=== PATIENT | female | born 1950 | race Caucasian/White ===

== ENCOUNTER 2017-05-18 13:51 | Emergency (ER) | payer MEDICARE, OTHER ==
--- NOTE | 2017-05-18 14:22 | EDM.PDOC ---
ED HPI GENERAL MEDICAL PROBLEM - General Chief Complaint: Abdominal Pain Stated Complaint: [id number] ABDOM PAIN LITTLE BACK PAIN Time Seen by Provider: 05/18/17 14:22 Source of Information: Reports: Patient, RN, RN Notes Reviewed History Limitations: Reports: No Limitations - History of Present Illness INITIAL COMMENTS - FREE TEXT/NARRATIVE: Arrives from home by POV with c/o several days of upper abdominal pain radiating to the back with nausea, fevers, and chills. Denies vomiting. Admits to constipation. Onset: Gradual Duration: Constant, Getting Worse Location: Reports: Abdomen Quality: Reports: Ache, Pressure Severity: Moderate Improves with: Reports: None Worsens with: Reports: Eating Associated Symptoms: Reports: No Other Symptoms Bilateral Upper Abdomen Pain Score (Numeric/FACES): 6 - Related Data Allergies Allergy/AdvReac Type Severity Reaction Status Date / Time No Known Allergies Allergy Verified 02/25/14 07:45 Home Meds: Home Meds Aspirin [Adult Low Dose Aspirin EC] 81 mg PO DAILY 02/25/14 [History] Enalapril [Vasotec] 20 mg PO DAILY 02/25/14 [History] Enalapril [Vasotec] 5 mg PO BEDTIME 05/18/17 [History] Metoprolol Succinate [Toprol XL 100mg] 100 mg PO DAILY 05/18/17 [History] Past Medical History Cardiovascular History: Reports: Hypertension Respiratory History: Reports: Other (See Below) (pulmonary nodules) Genitourinary History: Reports: Chronic Renal Insuffiency Endocrine/Metabolic History: Reports: Obesity/BMI 30+ - Past Surgical History Female Surgical History: Reports: Hysterectomy Social & Family History - Family History Family Medical History: Noncontributory - Tobacco Use Smoking Status *Q: Never Smoker - Alcohol Use Alcohol Use History: No Alcohol Use Frequency: Rarely - Recreational Drug Use Recreational Drug Use: No - Living Situation & Occupation Living situation: Reports: , with Spouse Occupation: Retired ED ROS GENERAL - Review of Systems Review Of Systems: ROS reveals no pertinent complaints other than HPI. ED EXAM, GENERAL - Physical Exam Exam: See Below Exam Limited By: No Limitations General Appearance: Alert, WD/WN, Obese, Other (uncomfortable and ill, but non- toxic appearing) Eye Exam: Bilateral Eye: Normal Inspection (no scleral icterus) Nose: Normal Inspection Throat/Mouth: Normal Lips, Normal Teeth, Normal Gums, Normal Oropharynx, Normal Voice, No Airway Compromise, Other (dry oral membranes) Head: Atraumatic, Normocephalic Neck: Normal Inspection, Supple, Non-Tender, Full Range of Motion. No: Lymphadenopathy (L), Lymphadenopathy (R) Respiratory/Chest: No Respiratory Distress, No Accessory Muscle Use, Chest Non- Tender, Decreased Breath Sounds, Crackles. No: Rales, Rhonchi, Wheezing Cardiovascular: Regular Rate, Rhythm, No Edema, Extra Beats GI/Abdominal: Soft, No Distention, No Abnormal Bruit, Tender (RUQ and epigastric abdomen), Abnormal Bowel Sounds (hypoactive). No: Guarding, Rigid, Rebound (Female) Exam: Deferred Rectal (Female) Exam: Deferred Back Exam: Normal Inspection. No: CVA Tenderness (L), CVA Tenderness (R), Paraspinal Tenderness, Vertebral Tenderness Extremities: Normal Inspection, Normal Range of Motion, Non-Tender Neurological: Alert, Oriented, CN II-XII Intact, Normal Cognition, Normal Gait, No Motor/Sensory Deficits Psychiatric: Normal Affect, Normal Mood Skin Exam: Warm, Dry, Intact, Normal Color, No Rash Course - Vital Signs Last Recorded V/S: Last Vital Signs Temp 37.7 C 05/18/17 16:01 Pulse 78 05/18/17 14:33 Resp 16 05/18/17 16:01 BP 137/63 05/18/17 16:01 Pulse Ox 95 05/18/17 16:01 - Orders/Labs/Meds Orders: Active Orders 24 hr Category Date Time Status Peripheral IV Care [RC] . DIRECTED Care 05/18/17 14:49 Active CULTURE BLOOD [BC] Stat Lab 05/18/17 15:00 Received CULTURE BLOOD [BC] Stat Lab 05/18/17 15:20 Received CULTURE STREP A CONFIRMATION [] Stat Lab 05/18/17 15:29 Results STREP SCRN A RAPID W CULT CONF [] Stat Lab 05/18/17 15:29 Results Sodium Chloride 0.9% [Saline Flush] Med 05/18/17 14:49 Active 10 ml FLUSH ASDIRECTED PRN Blood Culture x2 Reflex Set [OM.PC] Stat Oth 05/18/17 14:48 Ordered Peripheral IV Insertion Adult [OM.PC] Stat Oth 05/18/17 14:48 Ordered Medication Orders Sodium Chloride (Saline Flush) 10 ml FLUSH ASDIRECTED PRN PRN Reason: Keep Vein Open Last Admin: 05/18/17 15:58 Dose: 10 ml Labs: Laboratory Tests 05/18/17 05/18/17 05/18/17 Range/Units 15:00 15:00 15:00 WBC 14.5 H (5.0-10.0) 10^3/uL RBC 4.21 (4.2-5.4) 10^6/uL Hgb 12.5 (12.0-16.0) g/dL Hct 37.8 (37.0-47.0) % MCV 89.8 (80-100) fL MCH 29.7 (27.0-34.0) pg MCHC 33.1 (33.0-35.0) g/dL Plt Count 155 (150-450) 10^3/uL Neut % (Auto) 88.4 H (42.2-75.2) % Lymph % (Auto) 2.8 L (20.5-50.1) % [place] % (Auto) 8.6 H (2-8) % Eos % (Auto) 0.1 L (1.0-3.0) % Baso % (Auto) 0.1 (0.0-1.0) % Sodium 133 L (135-145) mmol/L Potassium 4.1 (3.6-5.0) mmol/L Chloride 99 L (101-111) mmol/L Carbon Dioxide 24.0 (21.0-31.0) mmol/L Anion Gap 14.1 BUN 30 H (7-18) mg/dL Creatinine 1.7 H (0.6-1.3) mg/dL Est Cr Clr Drug Dosing 30.47 mL/min Estimated GFR (MDRD) 30 BUN/Creatinine Ratio 17.64 Glucose 112 H (74-105) mg/dL Lactic Acid 0.8 (0.5-2.2) mmol/L Calcium 9.1 (8.4-10.2) mg/dl Total Bilirubin 0.9 (0.2-1.0) mg/dL AST 22 (10-42) IU/L ALT 19 (10-60) IU/L Alkaline Phosphatase 61 (42-121) IU/L Lactate Dehydrogenase 153 (91-180) IU/L Total Protein 7.6 (6.7-8.2) g/dl Albumin 4.0 (3.2-5.5) g/dl Globulin 3.6 Albumin/Globulin Ratio 1.11 Amylase 54 (28-100) U/L Lipase 23 (22-51) U/L Urine Color (YELLOW) Urine Appearance (CLEAR) Urine pH (5.0-9.0) Ur Specific [place] (1.005-1.030) Urine Protein (NEGATIVE) Urine Glucose (UA) (NEGATIVE) Urine Ketones (NEGATIVE) Urine Occult Blood (NEGATIVE) Urine Nitrite (NEGATIVE) Urine Bilirubin (NEGATIVE) Urine Urobilinogen (0.2-1.0) mg/dL Ur Leukocyte Esterase (NEGATIVE) Urine RBC /HPF Urine WBC (0-5/HPF) /HPF Ur Epithelial Cells /HPF Amorphous Sediment (0/HPF) /HPF Urine Bacteria (0-FEW/HPF) /HPF Urine Mucus /LPF 05/18/17 Range/Units 15:30 WBC (5.0-10.0) 10^3/uL RBC (4.2-5.4) 10^6/uL Hgb (12.0-16.0) g/dL Hct (37.0-47.0) % MCV (80-100) fL MCH (27.0-34.0) pg MCHC (33.0-35.0) g/dL Plt Count (150-450) 10^3/uL Neut % (Auto) (42.2-75.2) % Lymph % (Auto) (20.5-50.1) % [place] % (Auto) (2-8) % Eos % (Auto) (1.0-3.0) % Baso % (Auto) (0.0-1.0) % Sodium (135-145) mmol/L Potassium (3.6-5.0) mmol/L Chloride (101-111) mmol/L Carbon Dioxide (21.0-31.0) mmol/L Anion Gap BUN (7-18) mg/dL Creatinine (0.6-1.3) mg/dL Est Cr Clr Drug Dosing mL/min Estimated GFR (MDRD) BUN/Creatinine Ratio Glucose (74-105) mg/dL Lactic Acid (0.5-2.2) mmol/L Calcium (8.4-10.2) mg/dl Total Bilirubin (0.2-1.0) mg/dL AST (10-42) IU/L ALT (10-60) IU/L Alkaline Phosphatase (42-121) IU/L Lactate Dehydrogenase (91-180) IU/L Total Protein (6.7-8.2) g/dl Albumin (3.2-5.5) g/dl Globulin Albumin/Globulin Ratio Amylase (28-100) U/L Lipase (22-51) U/L Urine Color Yellow (YELLOW) Urine Appearance Slightly cloudy (CLEAR) Urine pH 5.5 (5.0-9.0) Ur Specific [place] 1.025 (1.005-1.030) Urine Protein 100 H (NEGATIVE) Urine Glucose (UA) Negative (NEGATIVE) Urine Ketones 15 H (NEGATIVE) Urine Occult Blood Negative (NEGATIVE) Urine Nitrite Negative (NEGATIVE) Urine Bilirubin Small H (NEGATIVE) Urine Urobilinogen 0.2 (0.2-1.0) mg/dL Ur Leukocyte Esterase Trace H (NEGATIVE) Urine RBC 0-5 /HPF Urine WBC 40-50 H (0-5/HPF) /HPF Ur Epithelial Cells Few /HPF Amorphous Sediment Few (0/HPF) /HPF Urine Bacteria Few (0-FEW/HPF) /HPF Urine Mucus Rare /LPF Rapid strep: negative Meds: Medications Generic Name Dose Route Start Last Admin Trade Name Sherlyn PRN Reason Stop Dose Admin Sodium Chloride 10 ml 05/18/17 14:49 05/18/17 15:58 Saline Flush FLUSH 10 ml ASDIRECTED PRN Administration Keep Vein Open Discontinued Medications Generic Name Dose Route Start Last Admin Trade Name Sherlyn PRN Reason Stop Dose Admin Acetaminophen 650 mg 05/18/17 16:19 05/18/17 16:21 Tylenol PO 05/18/17 16:20 650 mg NOW ONE Administration Sodium Chloride 1,000 mls @ 999 mls/hr 05/18/17 14:50 05/18/17 15:57 Normal Saline IV 05/18/17 15:50 999 mls/hr .BOLUS ONE Administration Piperacillin Sod/Tazobactam 100 mls @ 200 mls/hr 05/18/17 15:59 05/18/17 16: 15 Sod 3.375 gm/ Sodium Chloride IV 05/18/17 16:28 200 mls/hr ONETIME ONE Administration Ondansetron HCl 4 mg 05/18/17 14:50 05/18/17 15:58 Zofran IV 05/18/17 14:51 4 mg ONETIME ONE Administration - Radiology Interpretation Free Text/Narrative:: CT abd/pelvis: Disease gallbladder, i.e., solitary large dependent intraluminal gallstone impacted at the origin of the cystic duct, gallbladder distention, and wall thickening with pericystic fluid typical of acute inflammation. Unenhanced liver, stomach, spleen, pancreas and adrenal glands unremarkable. Specifically no current signs of abnormal dilatation intra or extrahepatic biliary ducts. Major pancreatic ducts unremarkable. No peripancratic "dirty fat ". CONCLUSION: Disease gallbladder. Sigmoid diverticulosis. See rad report. Departure - Departure Time of Disposition: 16:52 Disposition: DC/Tfer to [facility] 02 Condition: Serious Clinical Impression: Cholecystitis, Gallstone (impacted), Dehydration Chronic kidney disease Qualifiers: Chronic kidney disease stage: unspecified stage Qualified Code(s): N18.9 - Chronic kidney disease, unspecified - Discharge Information Referrals: PCP,Unobtain [Primary Care Provider] - Forms: ED Department Discharge, Interfacility Transfer EMTALA - My Orders Last 24 Hours: My Active Orders 05/18/17 14:48 Blood Culture x2 Reflex Set [OM.PC] Stat Peripheral IV Insertion Adult [OM.PC] Stat 05/18/17 14:49 Peripheral IV Care [RC] . DIRECTED Sodium Chloride 0.9% [Saline Flush] 10 ml FLUSH ASDIRECTED PRN 05/18/17 15:00 CULTURE BLOOD [BC] Stat 05/18/17 15:20 CULTURE BLOOD [BC] Stat 05/18/17 15:29 CULTURE STREP A CONFIRMATION [RM] Stat STREP SCRN A RAPID W CULT CONF [RM] Stat - Assessment/Plan Last 24 Hours: My Active Orders 05/18/17 14:48 Blood Culture x2 Reflex Set [OM.PC] Stat Peripheral IV Insertion Adult [OM.PC] Stat 05/18/17 14:49 Peripheral IV Care [RC] . DIRECTED Sodium Chloride 0.9% [Saline Flush] 10 ml FLUSH ASDIRECTED PRN 05/18/17 15:00 CULTURE BLOOD [BC] Stat 05/18/17 15:20 CULTURE BLOOD [BC] Stat 05/18/17 15:29 CULTURE STREP A CONFIRMATION [RM] Stat STREP SCRN A RAPID W CULT CONF [RM] Stat
[2017-05-18] MEDS ORDERED: Sodium Chloride 0.9% 10 ML Syringe FLUSH PRN (14:49)
[2017-05-18] MEDS ORDERED: Sodium Chloride 0.9% 1,000 ML IV ONE (14:50)
[2017-05-18] MEDS ORDERED: Ondansetron 4 MG/2 ML SDV IV ONE (14:50)
--- NOTE | 2017-05-18 15:58 | CT ---
Clinical history: 67 year-old 240 pound febrile female with upper abdominal pain that radiates to the back. Elevated white blood cell count (WBC 14,500). Scan technique: Volume acquisition of data emergency unenhanced CT scan of the abdomen and pelvis obt ained with the patient lying supine on the Siemens multi slice CT scanner [place], [place]. All data archived in the PACS system for storage, reformatting axial/sagittal/c oronal planes and study. Interpretation: Abnormal. 1. Diseased gallbladder i.e. solitary large dependent intraluminal gallstone impacted at the origin o f the cystic duct, gallbladder distention, and wall thickening with pericystic fluid typical of acute inflammation. 2. Unenhanced liver, stomach, spleen, pancreas and adrenal glands unremarkable. Specifically no curre nt signs of abnormal dilatation intra or extrahepatic biliary ducts. Major pancreatic ducts unremarka ble. No peripancreatic "dirty" fat. 3. Normal caliber aortoiliac vessels. Unenhanced kidneys unremarkable. No sign of nephrolithiasis or obstructive uropathy. 4. Sigmoid diverticulosis without associated signs of inflammation. 5. Dense tablet within the cecum. Normal appendix RLQ. No sign of mechanical bowel obstruction, ascit es or free air. 6. Normal heart. Platelike atelectasis but lung bases otherwise clear. Multilevel lower lumbar disc d isease and arthritis spine. CONCLUSION: Diseased gallbladder. Sigmoid diverticulosis.
[2017-05-18] MEDS ORDERED: Piperacillin/Tazobactam 3.375 GM in Sodium Chloride 0.9% 100 ML IV ONE (15:59)
[2017-05-18] MEDS ORDERED: Acetaminophen 325 MG Tab PO ONE (16:19)
== END 2017-05-18 17:38 ==
LOC: DL.ED 13:51
DX: K80.10 Calculus of gallbladder with chronic cholecystitis without obstruction (principal); I12.9 Hypertensive chronic kidney disease with stage 1 through stage 4 chronic kidney disease, or unspecified chronic kidney disease; N18.9 Chronic kidney disease, unspecified; Z79.82 Long term (current) use of aspirin; Z79.899 Other long term (current) drug therapy
CPT/HCPCS: 36415; 74176; 80053; 81001; 82150; 83605; 83615; 83690; 85025; 87040; 87081; 87430; 96361; 96374; 99285; A9270; J2405; J2543; J7030; J7050; Q9967